=== PATIENT | male | born 1955 | race Caucasian/White ===

== ENCOUNTER → 2023-11-12 07:20 | Outpatient (REF) | payer MEDICARE, OTHER, SELFPAY | LOC: RCS 07:20 | PROVIDERS: ATTENDING PHYSICIAN Internal Medicine Hematology & Oncology; FAMILY PHYSICIAN Internal Medicine | DX: I35.1 Nonrheumatic aortic (valve) insufficiency (principal); I51.7 Cardiomegaly | CPT/HCPCS: 93306 ==